=== PATIENT | male | born 1970 | race Caucasian/White ===

== ENCOUNTER 2017-02-23 12:37 | Day surgery (SDC) | payer BC ==
[2017-02-23] MEDS ORDERED: MIDAZOLAM 1 MG/ML 2 ML INJ ×3 (16:07)
[2017-02-23] MEDS ORDERED: FENTAnyl 50 MCG/ML VIAL (16:07)
== END 2017-02-23 18:07 | disposition home or self-care (01) ==
LOC: GIL 12:37
DX: K51.90 Ulcerative colitis, unspecified, without complications (principal); Z86.010 Personal history of colon polyps; J45.909 Unspecified asthma, uncomplicated
CPT/HCPCS: 45380; 88305